=== PATIENT | female | born 1960 | race Two or more races ===

== ENCOUNTER 2018-01-09 17:57 | Emergency (ER) | payer MEDICAID ==
[~2018-01-09] VITALS: Ht 152.4 cm; Wt 73.5 kg
[~2018-01-09 17:57] MED LIST: ACTOS45 MG ORAL; ASPIR-LOW81 MG ORAL; CIPRO500 MG PO; GLIPIZIDE5 MG ORAL; IBUPROFEN600 MG ORAL; IBUPROFEN800 MG ORAL; Ibuprofen; METFORMIN HCL1000 M1 ORAL; NORCO 5-325 TA1 EACH ORAL; ROBAXIN-750750 MG PO; VICODIN 5-5001 EACH PO; actos; glyberide; metformin; naproxen
[2018-01-09 18:21] VITALS: BP 132/72
[2018-01-09] MEDS ORDERED: KENALOG 0.5% CR15 GM APPLIC (18:36)
[2018-01-09] MEDS ORDERED: ZYRTEC10 MG ORAL (18:38)
--- NOTE | 2018-01-09 18:38 | Emergency Room Report ---
History of Present Illness General Chief Complaint: Animal Bite Present Illness HPI 57-year-old female patient presents to ER complaining of bee sting status post 2.5 hrs ago on her left upper extremity. Reports that she pulled a stinger out. denies history of allergies to bee stings. denies chest pain, shortness of breath, vomiting, tongue swelling, difficulty breathing, abdominal pain. Denies other acute symptoms. Denies swelling or bleeding at site of injury. Complains of bilateral rash on lower extremities, which history of intermittent rash that comes and goes, currently being treated with hydrocortisone cream by her primary care provider. Requesting stronger medication. REports does not know what skin condition she was diagnosed with, reports rash not currently present, itches when present. Allergies: Coded Allergies: INSULINS (Unverified Allergy, Unknown, 06/29/17) Patient History Past Medical History: see triage record Reviewed Nursing Documentation: PMH: Agreed; PSxH: Agreed Nursing Documentation-PMH Hx Cardiac Problems: Yes Hx Diabetes: Yes Review of Systems All Other Systems: negative except mentioned in HPI Physical Exam Vital Signs Date Time Temp Pulse Resp B/P (MAP) Pulse Ox O2 Delivery O2 Flow Rate FiO2 01/09/18 18:05 98.2 80 18 132/72 98 Room Air 98.2 Sp02 EP Interpretation: reviewed, normal General Appearance: well appearing, no apparent distress, alert, GCS 15, non- toxic Head: normocephalic, atraumatic Eyes: bilateral eye normal inspection, bilateral eye PERRL ENT: hearing grossly normal, normal pharynx, no angioedema, normal voice, uvula midline, moist mucus membranes Neck: full range of motion Respiratory: lungs clear, normal breath sounds, no rhonchi, no respiratory distress, no accessory muscle use, no wheezing, speaking full sentences Cardiovascular #1: regular rate, rhythm, no edema Genitourinary: no CVA tenderness Musculoskeletal: back normal, digits/nails normal, gait/station normal, normal range of motion, non-tender Neurologic: alert, oriented x3, responsive, motor strength/tone normal, sensory intact Psychiatric: mood/affect normal Skin: other - <1cm erythematous macule on left medial upper arm, no surrounding erythema or edema, no stinger present, no TTP, no drainage, no red streaking Medical Decision Making PA Attestation Dr. Bowen is my supervising Physician whom patient management has been discussed with. Diagnostic Impression: Primary Impression: Bee sting ER Course Pt. presents to the ED c/o bee sting. Ddx considered but are not limited to atopic dermatitis, bee sting, anaphylaxis , bite, urticaria, allergic reaction. Vital signs: are WNL, pt. is afebrile ER COURSE: Do not scratch, apply cool compresses to affected area. Cetirizine for pruritus. No surrounding erythema or edema, no signs of infection, does not require abx at this time. Lungs clear to auscultation, no difficulty breathing, no angioedema, low suspicion for anaphylaxis. ER precautions given, return to ER immediately for new or worsening of symptoms including but not limited to intractable vomiting, shortness of breath, chest pain, swelling, red streaking, worsening of swelling symptoms. Followup with PCP and request referral to loan specialist as needed. Followup with primary care provider and discuss referral to dermatology, contact provided machine feed operator if needed if unable to get referral from PCP. Discuss treatment for rash on legs. No rash noted on physical exam. Hydrocortisone available OTC to use for rash if it reappears. DISCHARGE: -Rx given for Cetirizine for pruritis. -Patient instructed to apply cool compresses to affected area. At this time pt. is stable for d/c to home. Patient resting comfortably, in no acute distress, nontoxic appearing. Care plan and follow up instructions have been discussed with the patient prior to discharge. Patient provided with printed patient care instructions, and any necessary prescriptions. Patient instructed to follow-up with primary care provider in 3 - 5 days. Patient questions asked and answered. Patient reports understanding and agreement to treatment plan. ER precautions given. Patient instructed to return to ER immediately for any new or worsening of symptoms including but not limited to increasing SOB, persistent fever. - Please note that this Emergency Department Report was dictated using [employer] 6 through [employer] teacher technology software, occasionally this can lead to erroneous entry secondary to interpretation by the dictation equipment. Last Vital Signs Date Time Temp Pulse Resp B/P (MAP) Pulse Ox O2 Delivery O2 Flow Rate FiO2 01/09/18 18:21 98.2 18 132/72 98 Room Air 98.2 01/09/18 18:05 80 Disposition: HOME, SELF-CARE Condition: Stable Scripts Cetirizine Hcl* (ZYRTEC*) 10 Mg Tablet 10 MG ORAL DAILY, #30 TAB 0 Refills Prov: Bryan Alba 01/09/18 Patient Instructions: Bee, Wasp, or Hornet Sting Additional Instructions: Followup with PCP and request referral to loan specialist as needed. Followup with primary care provider in 3 -5 days. Request referral to dermatology. Do not scratch or itch. Apply cool compresses to affected area. Take medications as directed. Do not apply medication to face or skin creases. SE Benadryl drowsiness, do not take prior to drinking, driving, operating heavy machinery. Patient questions asked and answered. ER precautions given, return to ER immediately for new or worsening of symptoms including but not limited to intractable vomiting, shortness of breath, chest pain, swelling, red streaking, worsening of swelling symptoms. [facility] Bryan Alba Jan 09, 2018 18:38
[2018-01-09 18:42] VITALS: BP 128/65
== END 2018-01-09 18:51 | disposition home or self-care (01) ==
LOC: EMR 18:15
DX: T63.441A Toxic effect of venom of bees, accidental (unintentional), initial encounter (principal); R21 Rash and other nonspecific skin eruption; Y92.9 Unspecified place or not applicable; E11.9 Type 2 diabetes mellitus without complications
CPT/HCPCS: 99283